=== PATIENT | male | born 1950 | race Caucasian/White ===

== ENCOUNTER 2018-01-13 23:33 | Inpatient (IN) | payer MEDICARE ==
[~2018-01-13] VITALS: Ht 182.9 cm; Wt 88.7 kg
[~2018-01-13 23:33] MED LIST: ALPR0.25 PO; ASPI-183 PO; FOLI5CAP PO; LEVE500 PO; NAME10TA PO; OXYC1TAB63 PO; PARO20TA2 PO; SERO25TA PO
[2018-01-14 01:37] VITALS: BP 118/83; PULSE 84; RESP 18; TEMP 97.3; O2SAT 96
[2018-01-14] MEDS ORDERED: ACETAMINOPHEN 325 MG TAB PO PRN (04:15)
[2018-01-14] MEDS ORDERED: MAGNESIUM HYDROXIDE SUSP 30 ML CUP PO PRN (04:15)
[2018-01-14] MEDS ORDERED: hydrOXYzine HCL 50 MG TAB PO PRN (04:15)
[2018-01-14] MEDS ORDERED: diphenhydrAMINE HCL 50 MG CAP - HS PRN PO (04:15)
[2018-01-14] MEDS ORDERED: diphenhydrAMINE HCL 50 MG/ML VIAL - HS PRN IM (04:15)
[2018-01-14] MEDS ORDERED: ALUMINUM/MAGNESIUM/SIMETH 30 ML CUP PO PRN (04:15)
[2018-01-14] MEDS: NICOTINE 21 MG/24 HR PATCH T-DERMAL SCH (09:00)
--- NOTE | 2018-01-14 10:25 | HHI.HP ---
Provisional Diagnosis Admission Date Jan 14, 2018 at 01:35 Certification of Person's Competence To Provide Express and Informed Consent I have personally examined Joni Young , a person being served at [facility] on, Jan 14, 2018 10:07. Express and informed consent means consent voluntarily given in writing, by a competent person, after sufficient explanation and disclosure of the subject matter involved to enable the person to make a knowing and willful decision without any element of force, fraud, deceit, duress, or other form of constraint or coercion. This person is 18 years of age or older, is not now known to be incompetent to consent to treatment with a guardian advocate, and does not have a health care surrogate or proxy currently making medical treatment decisions. I have found this person to be one of the following: [] Competent to provide express and informed consent, as defined above, for voluntary admission to this facility and is competent to provide express and informed consent for treatment. He/she has the consistent capacity to make well reasoned, willful, and knowing decisions concerning his or her medical or mental health treatment. The person fully and consistently understands the purpose of the admission for examination/placement and is fully capable of personally exercising all rights assured [place] [] Incompetent to provide express and informed consent to voluntary admission, and this is incompetent to provide express and informed consent to treatment. The person must be transferred to involuntary status and a petition for a guardian advocate filed with the Circuit Court. [] Refusing to provide express and informed consent to voluntary admission but is competent to provide express and informed consent for treatment. The person must be discharged or transferred to involuntary status. Form shall be completed within 24 hours of a person's arrival at the receiving facility and filed in the clinical record of each person: 1. Admitted on a voluntary basis 2. Permitted to provide express and informed consent to his/her own treatment 3. Allowed to transfer from involuntary to voluntary status 4. Prior to permitting a person to consent to his or her own treatment after having been previously found incompetent to consent to treatment. History of Present Illness Capacity: Has Capacity HPI Patient is the 68-year-old white male born in [place] migrated [place] the [place] at 9 years of age was initially seen at [facility] acted by a Dr. Mali walton dated 01/13/2018 at 6:15 PM that document reviewed essentially states his thoughts of suicidal ideation been following up with psych college [facility] then safe Dr. Reyna voiced intent of self-harm by a gun he has none but would make attempts to get one patient seen screen in the ED urine toxicology positive for opiates which she is prescribed. At the present time patient sitting quietly in exam room nurse Emily present throughout session he is alert oriented calm and cooperative there is some mild akathisia noted as a sequelae to the stroke 2-1/2 years ago. He states he is also stressed by the continued grieving over the suicide of his son 4 years ago. The stroke. In the subsequent divorce by his . This is led to admission and mid insomnia getting worse over the past month or 2. The depressed mood. A.m. energy. Decreased concentration and attention and increased irritability. He denies any significant alcohol use may be a beer every week or 2. Though he states he has had issues with alcohol in the past. He denies other drug use. He denies any voices or visions with this. He acknowledges suicidal ideation. Says it is gone today. He denies any prior psychiatric contact hospitalization psychotropic medication the review of the med reconciliation shows he has been prescribed Paxil and Seroquel. 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 Was has had the 2 boys as mentioned 1 of whom is committed suicide. At this time patient does meet criteria for further inpatient psychiatric hospitalization medication management and assessment. Per the med reconciliation we will have [facility] hospitalist consult will S. I feel patient does have capacity I will allow him to sign voluntary. Hopeless be fairly short stay we can return him to his family with follow-up mental health care through [facility] Review of Systems Neurologic: COMPLAINS OF: Seizures Except as stated in HPI: all other systems reviewed are Neg Past Psych History Psychological trauma history Patient denies though the emotional trauma of the suicidal of his son persists Violence risk - others (6 mos) Low Violence risk - self (6 mos) Low to moderate Substance Abuse History Drugs/Alcohol past 12 months Patient states past history of moderate alcohol abuse note and infrequent beer denies other drug use Past Family Social History Coded Allergies: No Known Allergies (Unverified , 01/14/18) Reported Medications Aspirin (Aspirin) 325 Mg Tab, 325 MG PO DAILY, #30 TAB 08/17/16 Oxycodone-Acetaminophen (Oxycodone-Acetaminophen) 5-325 mg Tab, 1 TAB PO Q8HR Y for PAIN, TAB 0 Refills 06/04/16 Memantine (Namenda) 10 Mg Tab, 10 MG PO DAILY for Alzheimer Disease, #30 TAB 0 Refills 06/04/16 Folic Acid (Folic Acid) 5 Mg Cap, 5 MG PO DAILY for Nutritional Supplement, CAP 0 Refills 06/04/16 Alprazolam (Alprazolam) 0.25 Mg Tab, 0.25 MG PO Q8H for ANXIETY, TAB 0 Refills 06/04/16 Levetiracetam (Keppra) 500 Mg Tab, 500 MG PO BID for Control Seizures, #60 TAB 0 Refills 06/04/16 Paroxetine (Paroxetine) 20 Mg Tab, 20 MG PO DAILY, #30 TAB 0 Refills 06/04/16 Discontinued Reported Medications Quetiapine (Seroquel) Unknown Strength Tab, PO DAILY, #30 TAB 0 Refills 06/04/16 Current Medications Medications (Trade) Dose Ordered Sig/Devan Route Start Time Stop Time Status Last Admin (Atarax) 50 mg Q6H PRN PO 01/14/18 04:15 (Benadryl) 50 mg HS PRN PO 01/14/18 04:15 (Benadryl Inj) 50 mg HS PRN IM 01/14/18 04:15 (Tylenol) 650 mg Q4H PRN PO 01/14/18 04:15 (Milk Of Magnesia Liq) 30 ml DAILY PRN PO 01/14/18 04:15 (Mag-Al Plus Susp Liq) 30 ml Q6H PRN PO 01/14/18 04:15 (Habitrol 21 Mg Patch.24 Hr) 1 patch DAILY T-DERMAL 01/14/18 09:00 Miscellaneous Information 1 HS T-DERMAL 01/14/18 21:00 (Aspirin) 325 mg DAILY PO 01/15/18 09:00 UNV (Folate) 5 mg DAILY PO 01/15/18 09:00 UNV (Keppra) 500 mg BID PO 01/14/18 10:00 UNV (Namenda) 10 mg DAILY PO 01/14/18 10:00 UNV (Paxil) 20 mg DAILY PO 01/14/18 10:00 UNV (SEROquel) 50 mg HS PO 01/14/18 21:00 UNV Family Psych History Patient denies low son committed suicide Social History Patient lives with brother states he has good relationship with brother and brother's children Patient's Strengths (min. 2) Patient verbal able access healthcare cooperative Physical Exam Patient medically cleared [facility] at the present time patient sitting quietly in the exam room he is in no acute distress, no complaints of respiratory problems no complaints of chest pain no complaints of abdominal pain patient moving all 4 extremities and appears to be some very mild left- sided weakness Vital Signs Vital Signs Date Time Temp Pulse Resp B/P (MAP) Pulse Ox O2 Delivery O2 Flow Rate FiO2 01/14/18 01:37 97.3 84 18 118/83 (95) 96 Mental Status Examination Appearance: Appropriate Consciousness: Alert Orientation: x4 Motor Activity: Abnormal gait (Perhaps mildly favoring his left side) Speech: Unremarkable, Other (Very mild word seeking) Language: Adequate Fund of Knowledge: Adequate Attention and Concentration: Adequate Memory: Impaired Mood: Other (Euthymic to mildly dysphoric) Affect: Other (Good range and intensity) Thought Process & Associations: Linear Thought Content: Appropriate Hallucination Type: None Delusion Type: None Suicidal Ideation: No Suicidal Plan: No Suicidal Intention: No Homicidal Ideation: No Homicidal Plan: No Homicidal Intention: No Insight: Fair Judgment: Impulsive Assessment & Plan Problem List: (1) MAJOR DEPRESSIVE DISORDER, SINGLE EPISODE, MODERATE ICD Codes: F32.1 - MAJOR DEPRESSIVE DISORDER, SINGLE EPISODE, MODERATE (2) Multi-infarct dementia ICD Codes: F01.50 - Vascular dementia without behavioral disturbance Assessment & Plan Estimated LOS: 3-5 days patient remains depressed with some cognitive deficits. Today he denies suicidality. The remains markedly depressed. Continue the Paxil consideration of adjusting the dose soon, and 50 mg of Seroquel at bedtime. We will refer him then to mental health professionals through [facility]. While returning him to his lives with his brother Discharge Planning At this time patient would decompensate if placed to the lower level of care Request HC Surrog/Guard Advoc?: No Og Smith MD Jan 14, 2018 10:25
[2018-01-14] MEDS ORDERED: PILL SPLITTER OTHER PRN (10:30)
[2018-01-14] MEDS: PARoxetine HCL 20 MG TAB PO SCH (11:31)
[2018-01-14] MEDS: levETIRAcetam 500 MG TAB PO SCH ×2 (11:31→21:39)
[2018-01-14] MEDS: MEMANTINE HCL 10 MG TAB PO SCH (11:31)
[2018-01-14 18:18] VITALS: BP 152/77; PULSE 52; RESP 16; TEMP 97.9; O2SAT 99
[2018-01-14] MEDS: REMOVE OLD NICOTINE PATCH T-DERMAL SCH (21:00)
[2018-01-14] MEDS: QUEtiapine FUMARATE 100 MG TAB PO SCH (21:39)
[2018-01-14] MEDS: DONEPEZIL HCL 5 MG TAB PO SCH (21:39)
[2018-01-15 06:28] VITALS: BP 126/67; PULSE 50; RESP 16; TEMP 98; O2SAT 98
--- NOTE | 2018-01-15 08:39 | PD.CONS ---
HPI Service [facility] Hospitalists Consult Requested By Dr. Smith Reason for Consult Medical management Primary Care Physician Unknown Diagnoses: History of Present Illness This is a 68-year-old male patient currently in the psychiatric unit who was initially seen at [facility] acted by a Dr. Mali walton dated 01/13/2018 at 6:15 PM that document reviewed essentially states his thoughts of suicidal ideation. Reportedly patient voiced intent of self-harm by a gun. Patient has a past medical history which includes seizure disorder, DVT, Gilbert syndrome, hyperlipidemia, hypertension, CVA and dementia. We have been consulted for assistance with medical management. Patient evaluated in the inpatient psych unit. Patient resting in bed offers no medical complaints. Patient denies N/V/C/D, fevers, chills, cough SOB or chest pain. Review of Systems ROS Limitations: Poor Historian Constitutional: DENIES: Fever, Chills, Dizziness Respiratory: DENIES: Cough, Sputum production, Shortness of breath Cardiovascular: DENIES: Chest pain, Palpitations, Dyspnea on Exertion Gastrointestinal: DENIES: Abdominal pain, Constipation, Diarrhea, Nausea, Vomiting Neurologic: DENIES: Abnormal gait, Headache, Speech Problems Psychiatric: DENIES: Anxiety, Confusion, Depression Past Family Social History Past Medical History seizure disorder, DVT, Gilbert syndrome, hyperlipidemia, hypertension, CVA and dementia. Past Surgical History Denies prior surgeries Reported Medications Aspirin 325 Mg Tab 325 Mg PO DAILY Oxycodone-Acetaminophen 5-325 mg Tab 1 Tab PO Q8HR PRN Namenda (Memantine) 10 Mg Tab 10 Mg PO DAILY Folic Acid 5 Mg Cap 5 Mg PO DAILY Alprazolam 0.25 Mg Tab 0.25 Mg PO Q8H Keppra (Levetiracetam) 500 Mg Tab 500 Mg PO BID Paroxetine (Paroxetine HCl) 20 Mg Tab 20 Mg PO DAILY Allergies: Coded Allergies: No Known Allergies (Unverified , 01/14/18) Family History Noncontributory Social History Denies EtOH use tobacco use or illicit drug use Physical Exam Vital Signs Vital Signs Date Time Temp Pulse Resp B/P (MAP) Pulse Ox O2 Delivery O2 Flow Rate FiO2 01/15/18 06:28 98.0 50 16 126/67 (86) 98 01/14/18 18:18 97.9 52 16 152/77 (102) 99 Physical Exam GENERAL: This is a 68-year-old male patient who appears older than stated age, in no apparent distress. SKIN: No rashes, ecchymoses or lesions. Cool and dry. HEAD: Atraumatic. Normocephalic. No temporal or scalp tenderness. EYES: Extraocular motions intact. No scleral icterus. No injection or drainage. CARDIOVASCULAR: Regular rate and rhythm RESPIRATORY: Clear to auscultation. Breath sounds equal bilaterally. GASTROINTESTINAL: Abdomen soft, non-tender, nondistended. MUSCULOSKELETAL: Extremities without clubbing, cyanosis, or edema. No joint tenderness, effusion, or edema noted. No calf tenderness. Negative Homans sign bilaterally. NEUROLOGICAL: Awake and alert. Motor and sensory grossly within normal limits. 4 out of 5 muscle strength in all muscle groups. Assessment and Plan Problem List: (1) MAJOR DEPRESSIVE DISORDER, SINGLE EPISODE, MODERATE ICD Codes: F32.1 - MAJOR DEPRESSIVE DISORDER, SINGLE EPISODE, MODERATE Plan: Patient was initially seen at [facility] to [facility] in [facility] under [place] act then transferred to inpatient psychiatric center. Further management of major depression per psychiatric team (2) Seizure disorder ICD Codes: G40.909 - Epilepsy, unspecified, not intractable, without status epilepticus Status: Acute Plan: Continue patient's Keppra 500 mg p.o. twice daily (3) Hypertension ICD Codes: I10 - Essential (primary) hypertension Status: Acute Plan: Not on antihypertensives as an outpatient monitor blood pressure trend (4) Dementia ICD Codes: F03.90 - Unspecified dementia without behavioral disturbance Status: Acute Plan: Continue patient's home Namenda 10 mg p.o. daily (5) CVA (cerebral infarction) ICD Codes: I63.9 - Cerebral infarction, unspecified Status: Acute Plan: Patient has had a CVA in the past will continue aspirin 325 mg daily Ranjana Baptiste Jan 15, 2018 08:39
[2018-01-15] MEDS: FOLIC ACID 1 MG TAB PO SCH (09:00)
[2018-01-15] MEDS: NICOTINE 21 MG/24 HR PATCH T-DERMAL SCH (09:00)
[2018-01-15] MEDS: levETIRAcetam 500 MG TAB PO SCH ×2 (09:08→22:00)
[2018-01-15] MEDS: MEMANTINE HCL 10 MG TAB PO SCH (09:08)
[2018-01-15] MEDS: PARoxetine HCL 20 MG TAB PO SCH (09:08)
[2018-01-15] MEDS: ASPIRIN 325 MG TAB PO SCH (09:08)
--- NOTE | 2018-01-15 12:32 | HHI.PYPN ---
Subjective Remarks Patient seen and gaitan with floor staff, chart reviewed, patient complaint medications. Patient calm cooperative today says he slept better. He now denies suicidality homicidality voices or visions. For now continue treatment Review of Systems Except as stated in HPI: all other systems reviewed are Neg Mental Status Examination Appearance: Appropriate Consciousness: Alert Orientation: x4 Motor Activity: Abnormal gait (Perhaps mildly favoring his left side) Speech: Unremarkable, Other (Very mild word seeking) Language: Adequate Fund of Knowledge: Adequate Attention and Concentration: Adequate Memory: Impaired Mood: Other (Euthymic to mildly dysphoric) Affect: Other (Good range and intensity) Thought Process & Associations: Linear Thought Content: Appropriate Hallucination Type: None Delusion Type: None Suicidal Ideation: No Suicidal Plan: No Suicidal Intention: No Homicidal Ideation: No Homicidal Plan: No Homicidal Intention: No Insight: Fair Judgment: Impulsive Results Vitals/IOs Vital Signs Date Time Temp Pulse Resp B/P (MAP) Pulse Ox O2 Delivery O2 Flow Rate FiO2 01/15/18 06:28 98.0 50 16 126/67 (86) 98 Assessment & Plan Problem List: (1) MAJOR DEPRESSIVE DISORDER, SINGLE EPISODE, MODERATE ICD Codes: F32.1 - MAJOR DEPRESSIVE DISORDER, SINGLE EPISODE, MODERATE (2) Multi-infarct dementia ICD Codes: F01.50 - Vascular dementia without behavioral disturbance Assessment & Plan Estimated LOS: days patient continues to improve, his mild cognitive deficits secondary to his CVA or persistent along with some mild left-sided weakness but overall he is compensating well with that. He now denies suicidality homicidality voice or visions. For now continue treatment Justification for Cont. Inpt. At this time patient would decompensate if place a lower level of care Discharge Planning Probable to return home with brother Request HC Surrog/Guard Advoc?: No Og Smith MD Jan 15, 2018 12:32
[2018-01-15 15:25] VITALS: BP 125/66; PULSE 53; RESP 18; TEMP 98.1; O2SAT 98
[2018-01-15] MEDS: REMOVE OLD NICOTINE PATCH T-DERMAL SCH (21:00)
[2018-01-15] MEDS: DONEPEZIL HCL 5 MG TAB PO SCH (21:00)
[2018-01-15] MEDS: QUEtiapine FUMARATE 100 MG TAB PO SCH (22:00)
[2018-01-16 06:06] VITALS: BP 110/62; PULSE 60; RESP 16; TEMP 98; O2SAT 98
[2018-01-16] MEDS: NICOTINE 21 MG/24 HR PATCH T-DERMAL SCH (09:00)
[2018-01-16] MEDS: PARoxetine HCL 20 MG TAB PO SCH (10:31)
[2018-01-16] MEDS: MEMANTINE HCL 10 MG TAB PO SCH (10:31)
[2018-01-16] MEDS: levETIRAcetam 500 MG TAB PO SCH ×2 (10:32→20:47)
[2018-01-16] MEDS: ASPIRIN 325 MG TAB PO SCH (10:32)
[2018-01-16] MEDS: FOLIC ACID 1 MG TAB PO SCH (10:34)
--- NOTE | 2018-01-16 15:56 | HHI.PYPN ---
Subjective Remarks Patient seen in his room with RN, chart reviewed, patient compliant medications. Patient continues calm pleasant with me states today that his voices are just about gone. He denied intrusive. Denies suicidality. Patient continues doing well consider discharge in 2436 hrs. Review of Systems Except as stated in HPI: all other systems reviewed are Neg Mental Status Examination Appearance: Appropriate Consciousness: Alert Orientation: x4 Motor Activity: Abnormal gait (Perhaps mildly favoring his left side) Speech: Unremarkable, Other (Very mild word seeking) Language: Adequate Fund of Knowledge: Adequate Attention and Concentration: Adequate Memory: Impaired Mood: Other (Euthymic to mildly dysphoric) Affect: Other (Good range and intensity) Thought Process & Associations: Linear Thought Content: Appropriate Hallucination Type: None Delusion Type: None Suicidal Ideation: No Suicidal Plan: No Suicidal Intention: No Homicidal Ideation: No Homicidal Plan: No Homicidal Intention: No Insight: Fair Judgment: Impulsive Results Vitals/IOs Vital Signs Date Time Temp Pulse Resp B/P (MAP) Pulse Ox O2 Delivery O2 Flow Rate FiO2 01/16/18 06:06 98.0 60 16 110/62 (78) 98 Assessment & Plan Problem List: (1) MAJOR DEPRESSIVE DISORDER, SINGLE EPISODE, MODERATE ICD Codes: F32.1 - MAJOR DEPRESSIVE DISORDER, SINGLE EPISODE, MODERATE (2) Multi-infarct dementia ICD Codes: F01.50 - Vascular dementia without behavioral disturbance Assessment & Plan Estimated LOS: days patient is showing some improvement, his mood is improving , he is pleasant states the voices are essentially gone. For now continue treatment Justification for Cont. Inpt. At this time patient would decompensate a place to a lower level of care Discharge Planning Possible discharge tomorrow to her brother Request HC Surrog/Guard Advoc?: No Og Smith MD Jan 16, 2018 15:56
[2018-01-16 17:42] VITALS: BP 117/66; PULSE 57; RESP 18; TEMP 98.2; O2SAT 100
[2018-01-16] MEDS: REMOVE OLD NICOTINE PATCH T-DERMAL SCH (20:46)
[2018-01-16] MEDS: DONEPEZIL HCL 5 MG TAB PO SCH (20:48)
[2018-01-16] MEDS: QUEtiapine FUMARATE 100 MG TAB PO SCH (20:48)
[2018-01-17 05:36] VITALS: BP 109/58; PULSE 46; RESP 16; TEMP 98.1; O2SAT 95
[2018-01-17] MEDS: NICOTINE 21 MG/24 HR PATCH T-DERMAL SCH (07:46)
[2018-01-17 08:26] VITALS: BP 125/68; PULSE 50
[2018-01-17] MEDS: levETIRAcetam 500 MG TAB PO SCH (09:14)
[2018-01-17] MEDS: ASPIRIN 325 MG TAB PO SCH (09:14)
[2018-01-17] MEDS: FOLIC ACID 1 MG TAB PO SCH (09:14)
[2018-01-17] MEDS: MEMANTINE HCL 10 MG TAB PO SCH (09:14)
[2018-01-17] MEDS: PARoxetine HCL 20 MG TAB PO SCH (09:14)
[2018-01-17] MEDS ORDERED: NAME10TA PO (13:20)
[2018-01-17] MEDS ORDERED: SERO50TA PO (13:20)
[2018-01-17] MEDS ORDERED: PARO20TA2 PO (13:20)
[2018-01-17] MEDS ORDERED: ARIC5TAB6 PO (13:20)
[2018-01-17] MEDS ORDERED: LEVE500 PO (13:20)
[2018-01-17] MEDS ORDERED: ASPI-183 PO (13:20)
[2018-01-17] MEDS ORDERED: FOLI1TAB6 PO (13:20)
--- NOTE | 2018-01-17 13:25 | HHI.DS ---
Psychiatry Discharge Summary Inpatient Psychiatric care?: Yes Advance Directive: No Reason Not Provided: Due to Patient Condition Mental Health AdvanceDirective: No Health Care Proxy: No Admission Admission Date Jan 14, 2018 at 01:35 Admission Diagnosis: (1) MAJOR DEPRESSIVE DISORDER, SINGLE EPISODE, MODERATE ICD Code: F32.1 - MAJOR DEPRESSIVE DISORDER, SINGLE EPISODE, MODERATE Brief History Patient is the 68-year-old white male born in [place] migrated [place] the [place] at 9 years of age [facility] by a Dr. Mali walton dated 01/13/2018 at 6:15 PM that document reviewed essentially states his thoughts of suicidal ideation been following up with psych college [facility] then rosalba Reyna voiced intent of self-harm by a gun he has none but would make attempts to get one patient seen screen in the ED urine toxicology positive for opiates which she is prescribed. At the present time patient sitting quietly in exam room nurse Emily present throughout session he is alert oriented calm and cooperative there is some mild akathisia noted as a sequelae to the stroke 2-1/2 years ago. He states he is also stressed by the continued grieving over the suicide of his son 4 years ago. The stroke. In the subsequent divorce by his . This is led to admission and mid insomnia getting worse over the past month or 2. The depressed mood. A.m. energy. Decreased concentration and attention and increased irritability. He denies any significant alcohol use may be a beer every week or 2. Though he states he has had issues with alcohol in the past. He denies other drug use. He denies any voices or visions with this. He acknowledges suicidal ideation. Says it is gone today. He denies any prior psychiatric contact hospitalization psychotropic medication the review of the med reconciliation shows he has been prescribed Paxil and Seroquel. 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 Was has had the 2 boys as mentioned 1 of whom is committed suicide. At this time patient does meet criteria for further inpatient psychiatric hospitalization medication management and assessment. Per the med reconciliation we will have [facility] hospitalist consult will S. I feel patient does have capacity I will allow him to sign voluntary. Hopeless be fairly short stay we can return him to his family with follow-up mental health care through [facility] Tobacco Use In Past 30 Days: Smokeless Tobacco Alcohol Use: Never Hospital Course Patient's hospital course was uneventful he showed calm his cooperation from day of admission, he was pleasant with us. Compliant medication. He denies suicidality and homicidality voices or visions. He is willing to go back to and his brothers willing to have him come back to live with. At the present time patient reached maximum benefit of this hospitalization. Patient to be discharged today to his brother with Rx 1 month follow-up private counselor in private psychiatrist Results Blood Pressure 125 / 68 Vital Signs Date Time Temp Pulse Resp B/P (MAP) Pulse Ox O2 Delivery O2 Flow Rate FiO2 01/17/18 08:26 50 125/68 (87) 01/17/18 05:36 98.1 16 95 Please see EMR for full lab results Summary of Procedures None done Pending results at discharge: No Medications # of Antipsychotic meds at D/C: 1 Approp Antipsych med options 1 - Minimum of three failed multiple trials of monotherapy. 2 - Documented plan to taper to monotherapy due to previous use of multiple meds OR cross-taper in progress at D/C. 3 - Documentation of augmentation of Clozapine. 4 - Justification other than those listed in allowable values 1-3, document here : Discharge Discharge Date: Jan 17, 2018 Discharge Diagnosis: (1) MAJOR DEPRESSIVE DISORDER, SINGLE EPISODE, MODERATE Diagnosis: Principal ICD Code: F32.1 - MAJOR DEPRESSIVE DISORDER, SINGLE EPISODE, MODERATE Pt Condition on Discharge: Stable Discharge Disposition: Discharge Home Discharge Instructions Diet Instructions: As Tolerated, No Restrictions Activities you can perform: Regular-No Restrictions Scheduled Appointment: Private Psychiatrist Discharge Time > 30 minutes Mental Status Examination Appearance: Appropriate Consciousness: Alert Orientation: x4 Motor Activity: Abnormal gait (Perhaps mildly favoring his left side) Speech: Unremarkable, Other (Very mild word seeking) Language: Adequate Fund of Knowledge: Adequate Attention and Concentration: Adequate Memory: Impaired Mood: Other (Euthymic to mildly dysphoric) Affect: Other (Good range and intensity) Thought Process & Associations: Linear Thought Content: Appropriate Hallucination Type: None Delusion Type: None Suicidal Ideation: No Suicidal Plan: No Suicidal Intention: No Homicidal Ideation: No Homicidal Plan: No Homicidal Intention: No Insight: Fair Judgment: Impulsive Discharge/Advance Care Plan Health Problems: (1) MAJOR DEPRESSIVE DISORDER, SINGLE EPISODE, MODERATE (2) Multi-infarct dementia Goals to promote your health * To prevent worsening of your condition and complications * To maintain your health at the optimal level Directions to meet your goals Take your medications as prescribed Follow your dietary instruction Follow activity as directed Keep your appointments as scheduled Take your immunizations and boosters as scheduled If your symptoms worsen call your PCP, if no PCP go to Urgent Care Center or Emergency Room For 18/02 questions related to your inpatient stay or results of tests pending at discharge, please contact Dr. Og Smith at Smoking is Dangerous to Your Health. Avoid second hand smoking Og Smith MD Jan 17, 2018 13:24
== END 2018-01-17 15:45 | disposition home or self-care (01) | DRG 885 ==
LOC: H270 01-14 01:35 → H260 01-14 13:10
PROVIDERS: ADMIT Psychiatry & Neurology Psychiatry; ATTEND Psychiatry & Neurology Psychiatry
DX: F32.1 Major depressive disorder, single episode, moderate (principal); I69.398 Other sequelae of cerebral infarction; G40.909 Epilepsy, unspecified, not intractable, without status epilepticus; F01.50 Vascular dementia, unspecified severity, without behavioral disturbance, psychotic disturbance, mood disturbance, and anxiety; E80.4 Gilbert syndrome; G47.00 Insomnia, unspecified; Z79.82 Long term (current) use of aspirin; Z79.891 Long term (current) use of opiate analgesic; Z79.899 Other long term (current) drug therapy; Z86.718 Personal history of other venous thrombosis and embolism; Z72.0 Tobacco use